=== PATIENT | male | born 1990 | race Caucasian/White ===

== ENCOUNTER 2024-02-14 08:00 | Outpatient (CLI) | payer SELFPAY ==
--- NOTE | 2024-02-14 08:08 | US_ITS ---
WS: [id number] ULTRASOUND ABDOMEN LIMITED CLINICAL INFORMATION: EPIGASTRIC PAIN COMPARISON: None. FINDINGS: Liver Size: Enlarged Craniocaudal length: 16.0 cm. Echogenicity: Normal. Surface nodularity: None. Mass (size and location): None. Bile ducts Intrahepatic ducts: Normal. Common bile duct diameter: 0.3 cm. Gallbladder Cholelithiasis Gallstones: Present Gallbladder sludge: None. Gallbladder wall thickening: None. Pericholecystic fluid: None. Sonographic Cueva sign: Absent. Pancreas Not visualized due to bowel gas Right kidney: Normal. Hydronephrosis: None. Size: 11.4 cm x 7.2 cm x 6.2 cm. Abdominal aorta and IVC Difficult to visualize Ascites: None. US/US abdomen limited [id number] IMPRESSION: Some images limited due to bowel gas 1. Mild hepatomegaly 2. Cholelithiasis. No gallbladder wall thickening or pericholecystic fluid. 3. Normal common bile duct. 4. No hydronephrosis in the RIGHT kidney.
== END 2024-02-14 08:01 | disposition home or self-care (01) ==
PROVIDERS: PCP Nurse Practitioner Family; Visit Provider Nurse Practitioner Family
DX: K80.20 Calculus of gallbladder without cholecystitis without obstruction (principal); R10.13 Epigastric pain; K21.9 Gastro-esophageal reflux disease without esophagitis
CPT/HCPCS: 76705